=== PATIENT | male | born 1960 | race Native Hawaiian/Other Pacific Islander ===

== ENCOUNTER 2016-09-13 10:46 | Emergency (ER) | payer OTHER ==
[~2016-09-13] VITALS: Ht 175.3 cm; Wt 78.0 kg
[~2016-09-13 10:46] MED LIST: ALBUTEROL4 M1 PO; FLUTMIS6 INH; GABA300C2 PO; LEVEMIR FLEXPEN SC; LIPITOR10 MG PO; LISI10TA11 PO; METF500T PO; PLAVIX75 MG PO; PROAIR HFA IN; SPIRIVA IN; TRAZ100T PO; TYLENOL ARTH650 MG PO
[2016-09-13 11:32] LABS: PLATELET COUNT 258 K/uL (142-355)
[2016-09-13 11:35] LABS: POTASSIUM 3.6 mmol/L (3.6-5.2); SODIUM 138 mmol/L (136-145)
[2016-09-13 11:42] LABS: PARTIAL THROMBOPLASTIN TIME 25.1 SECONDS (24.5-33.6)
[2016-09-13 13:30] VITALS: BP 159/63; TEMP 98
== END 2016-09-13 13:30 | disposition home or self-care (01) ==
LOC: ED 10:46
PROVIDERS: Emergency Medicine
DX: I10 Essential (primary) hypertension (principal); E11.65 Type 2 diabetes mellitus with hyperglycemia; R94.31 Abnormal electrocardiogram [ECG] [EKG]; I25.10 Atherosclerotic heart disease of native coronary artery without angina pectoris; R06.2 Wheezing
CPT/HCPCS: 36415; 80053; 80307; 81000; 82550; 82962; 83735; 83880; 84100; 84484; 85027; 85610; 85730; 93005; 96372; 96374; 96375; 99284; G0479; J0360; J1815; J1940; J3475

== ENCOUNTER 2017-07-02 11:12 | Outpatient (CLI) | payer OTHER ==
[2017-07-02 11:38] LABS: POTASSIUM 3.8 mmol/L (3.6-5.2)
== END 2017-07-02 21:48 | disposition home or self-care (01) ==
LOC: LABW 11:12
PROVIDERS: Internal Medicine Cardiovascular Disease
DX: Z79.899 Other long term (current) drug therapy (principal); Z51.81 Encounter for therapeutic drug level monitoring
CPT/HCPCS: 36415; 80048

== ENCOUNTER 2018-07-21 08:11 | Outpatient (CLI) | payer OTHER ==
[~2018-07-21] VITALS: Ht 30.5 cm; Wt 0.0 kg
== END 2018-07-21 21:17 | disposition home or self-care (01) ==
LOC: NM 08:11
DX: I25.10 Atherosclerotic heart disease of native coronary artery without angina pectoris (principal)
CPT/HCPCS: A9500; J2785

== ENCOUNTER 2018-08-19 10:24 | Day surgery (SDC) | payer OTHER ==
[2018-08-19 13:15] LABS: PLATELET COUNT 360 K/uL (142-355)
== END 2018-08-19 14:45 | disposition home or self-care (01) ==
LOC: OR 10:24
PROVIDERS: Internal Medicine Gastroenterology
PROC: 0DB68ZZ Excision of Stomach, Via Natural or Artificial Opening Endoscopic (ICD-10-PCS; principal; 2018-08-19)
PROC: 0D758ZZ Dilation of Esophagus, Via Natural or Artificial Opening Endoscopic (ICD-10-PCS; 2018-08-19)
DX: D3A.092 Benign carcinoid tumor of the stomach (principal); K25.9 Gastric ulcer, unspecified as acute or chronic, without hemorrhage or perforation; K21.0 Gastro-esophageal reflux disease with esophagitis; K22.4 Dyskinesia of esophagus; K22.2 Esophageal obstruction; K29.70 Gastritis, unspecified, without bleeding; R13.19 Other dysphagia; R10.13 Epigastric pain; J45.909 Unspecified asthma, uncomplicated
CPT/HCPCS: 80053; 85027; 85610; 93005; 94664; J2001; J2250; J2704

== ENCOUNTER 2018-09-16 11:07 | Day surgery (SDC) | payer OTHER ==
[2018-09-16 12:09] LABS: PLATELET COUNT 352 K/uL (142-355)
== END 2018-09-16 15:20 | disposition home or self-care (01) ==
LOC: OR 11:07
PROVIDERS: Internal Medicine Gastroenterology
PROC: 0DBP8ZZ Excision of Rectum, Via Natural or Artificial Opening Endoscopic (ICD-10-PCS; principal; 2018-09-16)
DX: K62.1 Rectal polyp (principal); K64.8 Other hemorrhoids; Z12.11 Encounter for screening for malignant neoplasm of colon; R19.4 Change in bowel habit; K59.09 Other constipation
CPT/HCPCS: 80053; 85027; J2001; J2250; J2704

== ENCOUNTER 2019-01-14 13:25 | Outpatient (CLI) | payer OTHER ==
[2019-01-14 14:11] LABS: PLATELET COUNT 377 K/uL (142-355)
[2019-01-14 14:30] LABS: POTASSIUM 4.5 mmol/L (3.6-5.2)
== END 2019-01-14 20:45 | disposition home or self-care (01) ==
LOC: LAB 13:25
PROVIDERS: Nurse Practitioner Family
DX: E11.9 Type 2 diabetes mellitus without complications (principal); I10 Essential (primary) hypertension; J44.1 Chronic obstructive pulmonary disease with (acute) exacerbation; J45.901 Unspecified asthma with (acute) exacerbation; E78.49 Other hyperlipidemia; J44.9 Chronic obstructive pulmonary disease, unspecified; F41.8 Other specified anxiety disorders
CPT/HCPCS: 36415; 80053; 80061; 83036; 84439; 84443; 85027

== ENCOUNTER 2019-06-02 08:47 | Outpatient (CLI) | payer OTHER ==
[2019-06-02 09:01] LABS: PLATELET COUNT 337 K/uL (142-355)
== END 2019-06-02 19:23 | disposition home or self-care (01) ==
LOC: LABW 08:47
PROVIDERS: Specialist
DX: Z01.810 Encounter for preprocedural cardiovascular examination (principal); R93.1 Abnormal findings on diagnostic imaging of heart and coronary circulation
CPT/HCPCS: 36415; 80053; 85027

== ENCOUNTER 2020-01-04 11:37 | Outpatient (CLI) | payer OTHER ==
[2020-01-04 12:18] LABS: PLATELET COUNT 338 K/uL (142-355)
[2020-01-04 12:30] LABS: POTASSIUM 4.4 mmol/L (3.6-5.2)
== END 2020-01-04 20:22 | disposition home or self-care (01) ==
LOC: LABW 11:37
PROVIDERS: Physician Assistant
DX: Z01.818 Encounter for other preprocedural examination (principal); D3A.092 Benign carcinoid tumor of the stomach
CPT/HCPCS: 36415; 80053; 85027

== ENCOUNTER 2020-01-28 01:07 | Emergency (ER) | payer OTHER ==
[~2020-01-28] VITALS: Ht 175.3 cm; Wt 75.8 kg
[2020-01-28 01:20] VITALS: TEMP 98.3
[2020-01-28 02:01] VITALS: BP 174/78
== END 2020-01-28 02:03 | disposition home or self-care (01) ==
LOC: ED 01:07
DX: L76.22 Postprocedural hemorrhage of skin and subcutaneous tissue following other procedure (principal)
CPT/HCPCS: 99282

== ENCOUNTER 2020-03-08 16:48 | Emergency (ER) | payer OTHER ==
[~2020-03-08] VITALS: Ht 175.3 cm; Wt 72.6 kg
[2020-03-08 17:02] VITALS: TEMP 98.4
[2020-03-08 17:42] LABS: PLATELET COUNT 350 K/uL (142-355)
[2020-03-08 17:43] LABS: POTASSIUM 4.3 mmol/L (3.6-5.2); SODIUM 126 mmol/L (136-145)
[2020-03-08 17:49] LABS: PARTIAL THROMBOPLASTIN TIME 25.4 SECONDS (24.5-33.6)
[2020-03-08 19:00] VITALS: BP 126/68
== END 2020-03-08 19:19 | disposition home or self-care (01) ==
LOC: ED 16:48
PROVIDERS: Hospitalist
DX: E11.65 Type 2 diabetes mellitus with hyperglycemia (principal); E72.51 Non-ketotic hyperglycinemia; Z79.4 Long term (current) use of insulin
CPT/HCPCS: 36415; 80053; 80320; 81000; 81002; 82962; 83880; 84484; 85027; 85610; 85730; 93005; 96360; 96375; 99284; J1815

== ENCOUNTER 2020-04-25 09:15 | Outpatient (CLI) | payer OTHER | END 2020-04-25 21:04 | disposition home or self-care (01) | LOC: LAB 09:15 | PROVIDERS: ATTEND Nurse Practitioner Family | DX: R06.02 Shortness of breath (principal); Z20.828 Contact with and (suspected) exposure to other viral communicable diseases | CPT/HCPCS: 87635; G2023; U0003 ==

== ENCOUNTER 2020-05-24 10:31 | Outpatient (CLI) | payer OTHER | END 2020-05-24 22:11 | disposition home or self-care (01) | LOC: INF 10:31 | PROVIDERS: ATTEND Internal Medicine | DX: Z23 Encounter for immunization (principal) | CPT/HCPCS: 96372 ==

== ENCOUNTER 2020-06-15 10:09 | Outpatient (CLI) | payer OTHER | END 2020-06-15 22:17 | disposition home or self-care (01) | LOC: INF 10:09 | PROVIDERS: ATTEND Internal Medicine | DX: Z23 Encounter for immunization (principal) | CPT/HCPCS: 96372 ==

== ENCOUNTER 2020-09-10 20:13 | Emergency (ER) | payer OTHER ==
[~2020-09-10] VITALS: Ht 175.3 cm; Wt 72.6 kg
[2020-09-10 21:00] LABS: PLATELET COUNT 326 K/uL (142-355)
[2020-09-10 21:08] LABS: POTASSIUM 4.3 mmol/L (3.6-5.2)
[2020-09-10 21:18] LABS: PARTIAL THROMBOPLASTIN TIME 24.5 SECONDS (24.5-33.6)
[2020-09-10 23:00] VITALS: BP 113/60; TEMP 98
== END 2020-09-10 23:00 | disposition short-term general hospital (02) ==
LOC: ED 20:13
PROVIDERS: Hospitalist
DX: S82.391A Other fracture of lower end of right tibia, initial encounter for closed fracture (principal); S82.441A Displaced spiral fracture of shaft of right fibula, initial encounter for closed fracture; R06.02 Shortness of breath; Z11.52 Encounter for screening for COVID-19; W18.39XA Other fall on same level, initial encounter; Y92.098 Other place in other non-institutional residence as the place of occurrence of the external cause
CPT/HCPCS: 36415; 80048; 80320; 85027; 85610; 85730; 87635; 94664; 96360; 96361; 96365; 96375; 96376; 99284; J0690; J1170; J1815; J2405; J2930; U0003

== ENCOUNTER 2021-03-12 09:15 | Outpatient (CLI) | payer OTHER | END 2021-03-12 18:50 | disposition home or self-care (01) | LOC: RAD 09:15 | PROVIDERS: ATTEND Nurse Practitioner Family | DX: R05.9 Cough, unspecified (principal) ==

== ENCOUNTER 2021-05-07 10:22 | Outpatient (CLI) | payer OTHER ==
[2021-05-07 10:41] LABS: PLATELET COUNT 352 K/uL (142-355)
[2021-05-07 11:16] LABS: POTASSIUM 5.2 mmol/L (3.6-5.2)
== END 2021-05-07 18:51 | disposition home or self-care (01) ==
LOC: LABW 10:22
PROVIDERS: ATTEND Nurse Practitioner Family
DX: E11.9 Type 2 diabetes mellitus without complications (principal); I10 Essential (primary) hypertension; J44.9 Chronic obstructive pulmonary disease, unspecified; E78.49 Other hyperlipidemia; F41.8 Other specified anxiety disorders; R53.81 Other malaise; M25.50 Pain in unspecified joint; E53.8 Deficiency of other specified B group vitamins
CPT/HCPCS: 36415; 80053; 80061; 82306; 82607; 83036; 84439; 84443; 85027

== ENCOUNTER 2022-02-11 14:38 | Observation (INO) | payer OTHER ==
[2022-02-11] VITALS (9 sets, daily range): BP systolic 118–143; BP diastolic 64–80; TEMP 97.8–98.7; Ht 175.3 cm; Wt 88.0 kg
[~2022-02-11] VITALS: Ht 175.3 cm; Wt 88.0 kg
[~2022-02-11 14:38] MED LIST changes: +INSUINJP SC; -LEVEMIR FLEXPEN SC
[2022-02-11 15:11] LABS: PLATELET COUNT 348 K/uL (142-355)
[2022-02-11 15:19] LABS: POTASSIUM 4.2 mmol/L (3.6-5.2)
[2022-02-11] MEDS ORDERED: ALBUTEROL108 MCG/AC INH (18:29)
[2022-02-11] MEDS ORDERED: FUROSEMIDE40 MG PO (18:31)
[2022-02-11] MEDS ORDERED: OMEPRAZOLE40 MG PO (18:31)
[2022-02-11] MEDS ORDERED: PANTOPRAZOLE SO40 M1 PO (18:32)
[2022-02-11] MEDS ORDERED: POTASSIUM CHLO20 ME2 PO (18:32)
[2022-02-11] MEDS ORDERED: NITROGLYCERIN0.4 MG SL (18:33)
[2022-02-11] MEDS ORDERED: METFORMIN HYD1000 MG PO (18:34)
[2022-02-11] MEDS ORDERED: LIPITOR20 MG PO (18:34)
[2022-02-11] MEDS ORDERED: ZESTRIL40 MG PO (18:34)
[2022-02-11] MEDS ORDERED: [UNRECOGNIZED DRUG - OTHER] INH (18:35)
[2022-02-11] MEDS ORDERED: LANTUS SOL100 UNIT/M SC (18:35)
[2022-02-11] MEDS ORDERED: BUDESONIDE INH (18:35)
[2022-02-11] MEDS ORDERED: AMLODIPINE BESYLATE PO (18:36)
[2022-02-11] MEDS ORDERED: ALPR0.2566 PO (18:36)
[2022-02-11] MEDS ORDERED: TRAMADOL HYDROC50 MG PO (18:50)
[2022-02-11] MEDS ORDERED: INSUINJP SC (18:56)
[2022-02-12 03:39] VITALS: BP 112/60; TEMP 97.8
[2022-02-12 03:48] LABS: PLATELET COUNT 315 K/uL (142-355)
[2022-02-12 03:58] LABS: POTASSIUM 3.8 mmol/L (3.6-5.2)
[2022-02-12 08:00] VITALS: BP 124/74; TEMP 97.8
[2022-02-12 12:00] VITALS: BP 126/78; TEMP 98.4
[2022-02-12 16:00] VITALS: BP 123/72; TEMP 97.9
[2022-02-12 19:54] VITALS: BP 136/81; TEMP 98.4
[2022-02-12 23:41] VITALS: BP 112/70; TEMP 98.6
[2022-02-13 03:51] VITALS: BP 92/48; TEMP 98.5
[2022-02-13 05:30] LABS: POTASSIUM 4.8 mmol/L (3.6-5.2)
[2022-02-13 08:00] VITALS: BP 119/72; TEMP 98.5
[2022-02-13 12:00] VITALS: BP 136/80; TEMP 97.7
[2022-02-13 13:34] LABS: PLATELET COUNT 289 K/uL (142-355)
[2022-02-13] MEDS ORDERED: AZIT250T3 PO (15:27)
[2022-02-13] MEDS ORDERED: PRED10TA27 PO (15:27)
== END 2022-02-13 17:42 | disposition home or self-care (01) ==
LOC: ED 14:38 → MED/SURG 16:47
PROVIDERS: Emergency Medicine Emergency Medical Services; ADMIT Internal Medicine; ATTEND Internal Medicine
DX: J44.1 Chronic obstructive pulmonary disease with (acute) exacerbation (principal); I11.0 Hypertensive heart disease with heart failure; I50.9 Heart failure, unspecified; K21.9 Gastro-esophageal reflux disease without esophagitis; I25.10 Atherosclerotic heart disease of native coronary artery without angina pectoris; F19.10 Other psychoactive substance abuse, uncomplicated; I25.2 Old myocardial infarction; E78.49 Other hyperlipidemia; E11.65 Type 2 diabetes mellitus with hyperglycemia; E11.42 Type 2 diabetes mellitus with diabetic polyneuropathy; Z79.4 Long term (current) use of insulin; Z79.84 Long term (current) use of oral hypoglycemic drugs
CPT/HCPCS: 36415; 36591; 36600; 80048; 80053; 80307; 82805; 82947; 82948; 83735; 84484; 85027; 85379; 85610; 87040; 87502; 87635; 93005; 94664; 94760; 96360; 96361; 96365; 96366; 96367; 96372; 96375; 96376; 99220; 99284; G0378; J0456; J0696; J1650; J1815; J2405; J2920; U0003